=== PATIENT | female | born 1950 | race Caucasian/White ===

== ENCOUNTER 2017-02-20 01:00 | Inpatient (IN) | payer MEDICARE, MEDICAID ==
[~2017-02-20] VITALS: Ht 167.6 cm; Wt 71.7 kg
[2017-02-20] MEDS ORDERED: SODIUM CHLORIDE 0.9% 1,000 ML IV ONE (01:25)
[2017-02-20] MEDS ORDERED: INSULIN REGULAR (HUMULIN R) 300UNITS/3ML IV ONE (01:30)
[2017-02-20 01:58] LABS: BG BASE EXCESS -5.8 mmol/L (-2.0-2.0); BG CARBOXYHEMOGLOBIN 0.3 % (0.5-1.5); BG DEOXYHEMOGLOBIN 2.5 % (0.0-5.0); BG FRACTION INSPIRED OXYGEN 21; BG HCO3 ACT 16.6 mmol/L (22.0-26.0); BG METHEMOGLOBIN 0.1 % (0.0-1.5); BG OXYGEN SATURATION 97.5 % (92.0-98.5); BG OXYHEMOGLOBIN 97.1 % (94.0-97.0); BG PCO2 24.9 mmHg (35.0-45.0); BG PH 7.443 (7.350-7.450); BG PO2 105.8 mmHg (75.0-100.0); BG SAMPLE SITE RIGHT RADIAL; BG TOTAL HEMOGLOBIN 12.4 g/dL (12.0-18.0); BG VENT MODE ROOM AIR
[2017-02-20 02:11] LABS: BASOPHILS % 0.1 % (0.0-2.0); EOSINOPHILS % 0.1 % (0.0-5.0); HEMATOCRIT. 35.9 % (36.0-48.0); HEMOGLOBIN. 11.7 g/dL (12.0-16.0); LYMPHOCYTES % 14.9 % (20.0-50.0); MONOCYTES % 4.4 % (2.0-8.0); NEUTROPHILS % 80.5 % (40.0-76.0); PLATELET 251 x1000/uL (130-400); RED BLOOD CELL COUNT 4.33 mill/uL (4.2-5.4)
[2017-02-20 02:14] LABS: BETA HYDROXYBUTYRATE 0.2 mMol/L (0.0-0.3); CHLORIDE 105 mEq/L (98-107); ETHANOL BLOOD < 10 mg/dL; TROPONIN I < 0.02 ng/mL (0.00-0.04)
[2017-02-20 02:35] LABS: CARBON DIOXIDE 20 mEq/L (21-32)
[2017-02-20 02:36] LABS: CLARITY URINE CLEAR (CLEAR); COLOR URINE YELLOW (YELLOW); GLUCOSE URINE 3+ (NEGATIVE); KETONES URINE TRACE (NEGATIVE); LEUKOCYTE ESTERASE URINE NEGATIVE (NEGATIVE); NITRITE URINE NEGATIVE (NEGATIVE); OCCULT BLOOD URINE NEGATIVE (NEGATIVE); PROTEIN URINE TRACE (NEGATIVE); SPECIFIC GRAVITY URINE 1.017 (1.005-1.030); UROBILINOGEN URINE 0.2 E.U./dL (0.2-1.0)
[2017-02-20 02:54] LABS: *AMPHETAMINES SCREEN URINE NEGATIVE (NEGATIVE); *BARBITURATES SCREEN URINE NEGATIVE (NEGATIVE); *BENZODIAZEPINES SCREEN URINE NEGATIVE (NEGATIVE); *COCAINE SCREEN URINE NEGATIVE (NEGATIVE); CANNABINOID URINE SCREEN NEGATIVE (NEGATIVE); METHADONE URINE SCREEN NEGATIVE (NEGATIVE); OPIATES URINE SCREEN NEGATIVE (NEGATIVE); PHENCYCLIDINE URINE SCREEN NEGATIVE (NEGATIVE)
[2017-02-20] MEDS ORDERED: LEVOFLOXACIN 750MG PREMIX 150 ML IV SCH (03:15)
[2017-02-20] MEDS ORDERED: SODIUM CHLORIDE 0.9% 1000ML BAG (SEPSIS BOLUS) IV SCH (03:15)
[2017-02-20] MEDS ORDERED: INSULIN REGULAR (HUMULIN R) 300UNITS/3ML IV SCH (04:45)
[2017-02-20 09:00] VITALS: BP_SYST 142; BP_SYST 144; BP_DIAS 62; BP_DIAS 81
[2017-02-20] MEDS ORDERED: GUAIFENESIN 200MG/10ML SUGAR FREE UDC PO PRN (10:15)
[2017-02-20] MEDS ORDERED: DEXTROSE 50% WATER 50ML SYRINGE IV PRN (10:15)
[2017-02-20] MEDS ORDERED: DIPHENHYDRAMINE 50MG/ML VIAL IV PRN (10:15)
[2017-02-20] MEDS ORDERED: ACETAMINOPHEN 325MG TABLET PO PRN (10:15)
[2017-02-20] MEDS ORDERED: ONDANSETRON HCL 4MG/2ML VIAL IV PRN (10:15)
[2017-02-20] MEDS ORDERED: ACETAMINOPHEN 650MG SUPP PR PRN (10:15)
[2017-02-20] MEDS ORDERED: CLONIDINE 0.1MG TABLET PO PRN (10:15)
[2017-02-20] MEDS ORDERED: NA PHOS,M-B/NA PHOS,DI-BA ENEMA 118ML PR PRN (10:15)
[2017-02-20] MEDS ORDERED: HYDROCODONE/ACETAMINOPHEN 5/325MG TABLET PO PRN (10:15)
[2017-02-20] MEDS ORDERED: MAGNESIUM/ALUMINUM HYDROXIDE/SIMETHICONE 30ML UDC PO PRN (10:15)
[2017-02-20] MEDS ORDERED: DOCUSATE SODIUM 100MG CAPSULE PO PRN (10:15)
[2017-02-20 12:00] VITALS: BP 142/73
[2017-02-20] MEDS: AMLODIPINE 5MG TABLET PO SCH ×2 (12:45→20:24)
[2017-02-20] MEDS: BLOOD SUGAR DIAGNOSTIC STRIP TEST SCH ×3 (12:49→21:57)
[2017-02-20] MEDS: INSULIN LISPRO 100 UNITS/ML SUBCUT SCH ×3 (13:25→21:57)
[2017-02-20 14:42] LABS: CARBON DIOXIDE 24 mEq/L (21-32); CHLORIDE 112 mEq/L (98-107)
[2017-02-20 16:00] VITALS: BP 137/74
[2017-02-20] MEDS: SODIUM CHLORIDE 0.45% 1,000 ML IV SCH ×2 (16:58→23:00)
[2017-02-20 18:18] LABS: *AMPHETAMINES SCREEN URINE NEGATIVE (NEGATIVE); *BARBITURATES SCREEN URINE NEGATIVE (NEGATIVE); *BENZODIAZEPINES SCREEN URINE NEGATIVE (NEGATIVE); *COCAINE SCREEN URINE NEGATIVE (NEGATIVE); CANNABINOID URINE SCREEN NEGATIVE (NEGATIVE); METHADONE URINE SCREEN NEGATIVE (NEGATIVE); OPIATES URINE SCREEN NEGATIVE (NEGATIVE); PHENCYCLIDINE URINE SCREEN NEGATIVE (NEGATIVE)
[2017-02-20 20:00] VITALS: BP 139/49
[2017-02-20] MEDS ORDERED: BENA20TA3 PO (21:54)
[2017-02-20] MEDS: BENAZEPRIL 5MG TABLET PO SCH (22:00)
[2017-02-20] MEDS ORDERED: SODIUM CHLORIDE 0.45% 1,000 ML IV SCH (22:00)
[2017-02-21] VITALS: BP 109/53
[2017-02-21 04:00] VITALS: BP 128/44
[2017-02-21 06:49] LABS: BASOPHILS % 0.5 % (0.0-2.0); EOSINOPHILS % 3.2 % (0.0-5.0); HEMATOCRIT. 33.2 % (36.0-48.0); HEMOGLOBIN. 11.1 g/dL (12.0-16.0); LYMPHOCYTES % 46.9 % (20.0-50.0); MEAN CORPUSCULAR HEMOGLOBIN 27.6 pg (28.0-32.0); MEAN CORPUSCULAR VOLUME 82.9 fL (81.0-99.0); NEUTROPHILS % 44.4 % (40.0-76.0); PLATELET 234 x1000/uL (130-400); RED BLOOD CELL COUNT 4.01 mill/uL (4.2-5.4); RED CELL DISTRIBUTION WIDTH 13.3 % (11.6-14.6)
[2017-02-21 07:07] LABS: CARBON DIOXIDE 27 mEq/L (21-32); CHLORIDE 109 mEq/L (98-107); HDL CHOLESTEROL 42 mg/dL (40-59); LDL CHOLESTEROL 91 mg/dL (5-100)
[2017-02-21] MEDS: BLOOD SUGAR DIAGNOSTIC STRIP TEST SCH ×2 (07:28→12:40)
[2017-02-21 08:00] VITALS: BP 129/63
[2017-02-21] MEDS: INSULIN LISPRO 100 UNITS/ML SUBCUT SCH ×2 (08:10→12:58)
[2017-02-21] MEDS: AMLODIPINE 5MG TABLET PO SCH (08:34)
[2017-02-21] MEDS: BENAZEPRIL 5MG TABLET PO SCH (08:34)
[2017-02-21 12:00] VITALS: BP 105/54
[2017-02-21 15:32] VITALS: BP 105/54
[2017-02-21 16:00] VITALS: BP 113/59
== END 2017-02-21 16:30 | disposition home or self-care (01) | DRG 70 ==
LOC: ER 01:00 → 7WST 05:30 → ENRESERV 07:33
PROVIDERS: ADMIT Family Medicine; ATTEND Family Medicine
DX: G93.41 Metabolic encephalopathy (principal); E11.00 Type 2 diabetes mellitus with hyperosmolarity without nonketotic hyperglycemic-hyperosmolar coma (NKHHC); E87.2 Acidosis; E86.0 Dehydration; Z90.710 Acquired absence of both cervix and uterus
CPT/HCPCS: 36415; 36600; 70450; 71010; 74176; 80048; 80053; 80061; 80305; 81001; 82010; 82375; 82805; 82962; 83036; 83605; 83690; 83880; 84484; 85025; 85610; 86850; 86900; 87040; 87086; 93005; 96361; 96365; 96375; 96376; 99285; G0482; J1815; J1956; J7030

== ENCOUNTER 2017-06-24 08:59 | Inpatient (IN) | payer MEDICARE, MEDICAID ==
[~2017-06-24] VITALS: Ht 167.6 cm; Wt 62.6 kg
[~2017-06-24 08:59] MED LIST: BENA20TA10 PO
[2017-06-24 11:01] LABS: BASOPHILS % 0.4 % (0.0-2.0); EOSINOPHILS % 0.1 % (0.0-5.0); HEMATOCRIT. 42.1 % (36.0-48.0); HEMOGLOBIN. 13.9 g/dL (12.0-16.0); LYMPHOCYTES % 14.5 % (20.0-50.0); MEAN CORPUSCULAR HEMOGLOBIN 26.6 pg (28.0-32.0); MEAN CORPUSCULAR VOLUME 80.7 fL (81.0-99.0); MEAN PLATELET VOLUME 9.4 fl (7.4-10.4); MONOCYTES % 5.7 % (2.0-8.0); NEUTROPHILS % 79.3 % (40.0-76.0); PLATELET 196 x1000/uL (130-400); RED BLOOD CELL COUNT 5.22 mill/uL (4.2-5.4); RED CELL DISTRIBUTION WIDTH 13.9 % (11.6-14.6)
[2017-06-24 11:06] LABS: PARTIAL THROMBOPLASTIN TIME 26.7 sec (23.4-31.0); PROTHROMBIN TIME 10.3 sec (9.4-11.6)
[2017-06-24 11:15] LABS: CHLORIDE 98 mEq/L (98-107)
[2017-06-24] MEDS ORDERED: SODIUM CHLORIDE 0.9% 1,000 ML IV ONE (12:45)
[2017-06-24] MEDS ORDERED: DEXTROSE 50% WATER 50ML SYRINGE IV PRN (14:15)
[2017-06-24] MEDS ORDERED: DIPHENHYDRAMINE 50MG/ML VIAL IV PRN (14:15)
[2017-06-24] MEDS ORDERED: CLONIDINE 0.1MG TABLET PO PRN (14:15)
[2017-06-24] MEDS ORDERED: IPRATROPIUM/ALBUTEROL 0.5-3(2.5)MG/3ML NEB INH PRN (14:15)
[2017-06-24] MEDS ORDERED: TRAMADOL 50MG TABLET PO ONE (14:15)
[2017-06-24] MEDS ORDERED: ONDANSETRON HCL 4MG/2ML INJ IV PRN (14:15)
[2017-06-24] MEDS ORDERED: ACETAMINOPHEN 325MG TABLET PO PRN (14:15)
[2017-06-24] MEDS ORDERED: HYDROCODONE/ACETAMINOPHEN 5/325MG TABLET PO PRN (14:15)
[2017-06-24] MEDS ORDERED: THROAT LOZENGES-BENZOCAINE/MENTH/CETYLPYRD CL LOZENGES MM PRN (15:15)
[2017-06-24 18:13] VITALS: BP 133/68
[2017-06-24] MEDS: BLOOD SUGAR DIAGNOSTIC STRIP TEST SCH (20:40)
[2017-06-24] MEDS: AMOXICILLIN/POTASSIUM CLAVULANATE 875/125MG TAB PO SCH (20:48)
[2017-06-24] MEDS: GUAIFENESIN 600MG ER TABLET PO SCH (20:49)
[2017-06-24] MEDS: INSULIN LISPRO 100 UNITS/ML SUBCUT SCH (20:54)
[2017-06-24 20:56] VITALS: BP 148/64
[2017-06-24] MEDS ORDERED: ASPI-1158 PO (21:52)
[2017-06-24] MEDS ORDERED: SIMV20TA6 PO (21:52)
[2017-06-24] MEDS ORDERED: NAPR-681 PO (21:52)
[2017-06-24] MEDS ORDERED: METF-415 PO (21:52)
[2017-06-24] MEDS ORDERED: CHOL400T15 MT (21:52)
[2017-06-24] MEDS ORDERED: NAPROXEN 500MG TABLET PO PRN (22:51)
[2017-06-25] VITALS: BP 105/63
[2017-06-25 04:00] VITALS: BP 92/64
[2017-06-25 07:01] LABS: BASOPHILS % 0.2 % (0.0-2.0); HEMATOCRIT. 43.7 % (36.0-48.0); HEMOGLOBIN. 14.5 g/dL (12.0-16.0); LYMPHOCYTES % 26.1 % (20.0-50.0); MEAN CORPUSCULAR HEMOGLOBIN 27.2 pg (28.0-32.0); MEAN CORPUSCULAR VOLUME 81.8 fL (81.0-99.0); MEAN PLATELET VOLUME 9.8 fl (7.4-10.4); MONOCYTES % 7.3 % (2.0-8.0); NEUTROPHILS % 66.4 % (40.0-76.0); PLATELET 183 x1000/uL (130-400); RED BLOOD CELL COUNT 5.34 mill/uL (4.2-5.4); RED CELL DISTRIBUTION WIDTH 13.9 % (11.6-14.6)
[2017-06-25 07:23] LABS: CHLORIDE 102 mEq/L (98-107)
[2017-06-25 07:27] LABS: HDL CHOLESTEROL 19 mg/dL (40-59); LDL CHOLESTEROL 100 mg/dL (5-100)
[2017-06-25] MEDS: BLOOD SUGAR DIAGNOSTIC STRIP TEST SCH ×4 (07:40→21:29)
[2017-06-25 08:00] VITALS: BP 105/62
[2017-06-25] MEDS: GUAIFENESIN 600MG ER TABLET PO SCH ×2 (08:26→21:34)
[2017-06-25] MEDS: AMOXICILLIN/POTASSIUM CLAVULANATE 875/125MG TAB PO SCH ×2 (08:26→21:34)
[2017-06-25] MEDS: METFORMIN HCL 850MG TABLET PO SCH ×2 (08:26→17:38)
[2017-06-25] MEDS: ASPIRIN 81MG EC TABLET PO SCH (08:27)
[2017-06-25] MEDS: INSULIN LISPRO 100 UNITS/ML SUBCUT SCH ×4 (08:29→21:35)
[2017-06-25] MEDS: INSULIN GLARGINE UD 100 UNITS/ML SYR SUBCUT SCH (10:36)
[2017-06-25 11:34] LABS: CLARITY URINE CLEAR (CLEAR); KETONES URINE 3+ (NEGATIVE); LEUKOCYTE ESTERASE URINE NEGATIVE (NEGATIVE); NITRITE URINE NEGATIVE (NEGATIVE); OCCULT BLOOD URINE NEGATIVE (NEGATIVE); PROTEIN URINE 1+ (NEGATIVE); SPECIFIC GRAVITY URINE 1.041 (1.005-1.030); UROBILINOGEN URINE 0.2 E.U./dL (0.2-1.0)
[2017-06-25 12:00] VITALS: BP 107/59
[2017-06-25 12:10] LABS: COLOR URINE 3 (YELLOW)
[2017-06-25] MEDS: GUAIFENESIN-DM 200MG-20MG/10ML UDC PO PRN (15:15)
[2017-06-25 16:00] VITALS: BP 107/61
[2017-06-25 20:00] VITALS: BP 107/61
[2017-06-26] VITALS: BP 117/53
[2017-06-26 04:00] VITALS: BP 112/62
[2017-06-26] MEDS: BLOOD SUGAR DIAGNOSTIC STRIP TEST SCH ×4 (07:42→20:36)
[2017-06-26 08:00] VITALS: BP 109/63
[2017-06-26] MEDS: AMOXICILLIN/POTASSIUM CLAVULANATE 875/125MG TAB PO SCH ×2 (09:23→20:16)
[2017-06-26] MEDS: METFORMIN HCL 850MG TABLET PO SCH ×2 (09:23→17:11)
[2017-06-26] MEDS: ASPIRIN 81MG EC TABLET PO SCH (09:23)
[2017-06-26] MEDS: GUAIFENESIN 600MG ER TABLET PO SCH ×2 (09:23→20:16)
[2017-06-26] MEDS: INSULIN LISPRO 100 UNITS/ML SUBCUT SCH ×4 (09:25→21:07)
[2017-06-26 11:43] VITALS: BP 112/55
[2017-06-26] MEDS: INSULIN GLARGINE UD 100 UNITS/ML SYR SUBCUT SCH (12:00)
[2017-06-26 16:00] VITALS: BP 117/70
[2017-06-26 20:00] VITALS: BP 127/66
[2017-06-27] VITALS: BP 126/69
[2017-06-27 04:00] VITALS: BP 134/67
[2017-06-27] MEDS: BLOOD SUGAR DIAGNOSTIC STRIP TEST SCH ×4 (06:28→20:29)
[2017-06-27] MEDS: INSULIN LISPRO 100 UNITS/ML SUBCUT SCH ×4 (06:54→20:42)
[2017-06-27 08:00] VITALS: BP 112/62
[2017-06-27] MEDS: GUAIFENESIN 600MG ER TABLET PO SCH ×2 (08:45→20:39)
[2017-06-27] MEDS: AMOXICILLIN/POTASSIUM CLAVULANATE 875/125MG TAB PO SCH ×2 (08:45→20:39)
[2017-06-27] MEDS: ASPIRIN 81MG EC TABLET PO SCH (08:45)
[2017-06-27] MEDS: METFORMIN HCL 850MG TABLET PO SCH ×2 (08:45→17:27)
[2017-06-27] MEDS ORDERED: INSULIN GLARGINE UD 100 UNITS/ML SYR SUBCUT SCH ×4 (10:00→22:00)
[2017-06-27 12:00] VITALS: BP 137/66
[2017-06-27 13:04] LABS: CHLORIDE 100 mEq/L (98-107)
[2017-06-27] MEDS ORDERED: INSULIN LISPRO 100 UNITS/ML SUBCUT NR ×3 (13:15→18:00)
[2017-06-27] MEDS: ENOXAPARIN 40MG/0.4ML SYR SUBCUT SCH (13:22)
[2017-06-27 16:00] VITALS: BP 128/68
[2017-06-27] MEDS ORDERED: INSULIN LISPRO 100 UNITS/ML SUBCUT SCH ×2 (17:20)
[2017-06-27 20:00] VITALS: BP 120/64
[2017-06-27] MEDS: INSULIN GLARGINE UD 100 UNITS/ML SYR SUBCUT SCH (21:51)
[2017-06-28] VITALS: BP 114/60
[2017-06-28 04:00] VITALS: BP 128/63
[2017-06-28] MEDS: BLOOD SUGAR DIAGNOSTIC STRIP TEST SCH (06:31)
[2017-06-28] MEDS ORDERED: INSULIN LISPRO 100 UNITS/ML SUBCUT SCH (07:20)
[2017-06-28] MEDS: INSULIN LISPRO 100 UNITS/ML SUBCUT SCH (07:25)
[2017-06-28 07:29] LABS: BASOPHILS % 0.1 % (0.0-2.0); EOSINOPHILS % 0.3 % (0.0-5.0); HEMATOCRIT 37.1 % (36.0-48.0); HEMATOCRIT. 37.1 % (36.0-48.0); HEMOGLOBIN 12.4 g/dL (12.0-16.0); HEMOGLOBIN. 12.4 g/dL (12.0-16.0); LYMPHOCYTES % 26.2 % (20.0-50.0); MEAN CORPUSCULAR VOLUME 80.6 fL (81.0-99.0); MEAN PLATELET VOLUME 9.7 fl (7.4-10.4); MONOCYTES % 6.7 % (2.0-8.0); NEUTROPHILS % 66.7 % (40.0-76.0); PLATELET 215 x1000/uL (130-400); RED CELL DISTRIBUTION WIDTH 13.6 % (11.6-14.6)
[2017-06-28 07:44] LABS: CHLORIDE 106 mEq/L (98-107)
[2017-06-28] MEDS: METFORMIN HCL 850MG TABLET PO SCH (07:50)
[2017-06-28 08:10] VITALS: BP 119/56
[2017-06-28] MEDS: GUAIFENESIN 600MG ER TABLET PO SCH (10:12)
[2017-06-28] MEDS: ASPIRIN 81MG EC TABLET PO SCH (10:12)
[2017-06-28] MEDS: ENOXAPARIN 40MG/0.4ML SYR SUBCUT SCH (10:13)
[2017-06-28] MEDS: AMOXICILLIN/POTASSIUM CLAVULANATE 875/125MG TAB PO SCH (10:51)
[2017-06-28] MEDS: GUAIFENESIN-DM 200MG-20MG/10ML UDC PO PRN (10:51)
[2017-06-28] MEDS: INSULIN GLARGINE UD 100 UNITS/ML SYR SUBCUT SCH (11:44)
[2017-06-28 12:00] VITALS: BP 118/58
[2017-06-28 15:14] VITALS: BP 118/60
[2017-06-28 16:00] VITALS: BP 121/65
== END 2017-06-28 17:20 | disposition home or self-care (01) | DRG 637 ==
LOC: ER 09:16 → EDBEDREQ 12:50 → 6EST 13:19 → EDBEDREQ 13:20 → ENRESERV 17:47
PROVIDERS: ADMIT Internal Medicine; ATTEND Internal Medicine
DX: E11.65 Type 2 diabetes mellitus with hyperglycemia (principal); J96.00 Acute respiratory failure, unspecified whether with hypoxia or hypercapnia; E46 Unspecified protein-calorie malnutrition; E87.1 Hypo-osmolality and hyponatremia; E86.0 Dehydration; E78.00 Pure hypercholesterolemia, unspecified; J35.01 Chronic tonsillitis; M54.9 Dorsalgia, unspecified; J40 Bronchitis, not specified as acute or chronic; J02.0 Streptococcal pharyngitis; B95.5 Unspecified streptococcus as the cause of diseases classified elsewhere; E78.5 Hyperlipidemia, unspecified; I10 Essential (primary) hypertension; Z79.82 Long term (current) use of aspirin; Z79.84 Long term (current) use of oral hypoglycemic drugs; Z79.899 Other long term (current) drug therapy; Z85.43 Personal history of malignant neoplasm of ovary; Z87.891 Personal history of nicotine dependence; Z90.710 Acquired absence of both cervix and uterus; Z68.22 Body mass index [BMI] 22.0-22.9, adult
CPT/HCPCS: 36415; 70490; 71045; 80048; 80061; 82962; 83036; 83880; 84484; 85027; 87070; 87430; 87804; 93005; 96360; 97162; 97535; 99285; J1650; J1815; J7030

== ENCOUNTER 2024-04-24 16:08 | Emergency (ER) | payer MEDICARE, MEDICAID ==
[~2024-04-24] VITALS: Ht 170.2 cm; Wt 68.0 kg
[~2024-04-24 16:08] MED LIST changes: +ASPI-1406 PO; +BENA-8 PO; -BENA20TA10 PO; +CHOL400T15 MT; +METF-415 PO; +NAPR-681 PO; +SIMV-43 PO
[2024-04-24 16:09] VITALS: O2SAT 99
[2024-04-24 16:34] VITALS: BP 156/57; PULSE 68; RESP 16; TEMP 98.4; O2SAT 100
[2024-04-24] MEDS ORDERED: AMOX1TAB16 MT (18:20)
[2024-04-24] MEDS: LIDOCAINE HCL 1% 20ML VIAL INFIL ONE (18:51)
== END 2024-04-24 18:44 | disposition home or self-care (01) ==
LOC: ER 16:08
DX: S61.412A Laceration without foreign body of left hand, initial encounter (principal); E11.9 Type 2 diabetes mellitus without complications; E78.00 Pure hypercholesterolemia, unspecified; I10 Essential (primary) hypertension; Z95.1 Presence of aortocoronary bypass graft; W26.0XXA Contact with knife, initial encounter; Y93.89 Activity, other specified; Y92.89 Other specified places as the place of occurrence of the external cause; Y99.8 Other external cause status
CPT/HCPCS: 99283; 12002; J3490

== ENCOUNTER 2024-05-04 12:34 | Emergency (ER) | payer MEDICARE, MEDICAID ==
[~2024-05-04] VITALS: Ht 162.6 cm; Wt 59.0 kg
[~2024-05-04 12:34] MED LIST changes: +AMOX1TAB16 MT
[2024-05-04 12:40] VITALS: PULSE 75; O2SAT 100
[2024-05-04 12:44] VITALS: BP 139/52; RESP 18; TEMP 97.8; O2SAT 100
== END 2024-05-04 13:30 | disposition home or self-care (01) ==
LOC: ER 12:34
DX: Z48.02 Encounter for removal of sutures (principal); E11.9 Type 2 diabetes mellitus without complications; E78.00 Pure hypercholesterolemia, unspecified; I10 Essential (primary) hypertension; I25.2 Old myocardial infarction; Z95.1 Presence of aortocoronary bypass graft; Z79.899 Other long term (current) drug therapy
CPT/HCPCS: 99281

== ENCOUNTER 2024-05-07 14:39 | Emergency (ER) | payer OTHER, MEDICAID ==
[~2024-05-07] VITALS: Ht 170.2 cm; Wt 63.0 kg
[2024-05-07 14:41] VITALS: O2SAT 96
[2024-05-07 15:01] VITALS: BP 120/52; PULSE 80; RESP 16; TEMP 98.3; O2SAT 99
[2024-05-07] MEDS: BACITRACIN ZINC OINT UDPKT TOP ONE (19:17)
[2024-05-07] MEDS ORDERED: BO1 TP (19:21)
== END 2024-05-07 20:09 | disposition home or self-care (01) ==
LOC: ER 14:59
DX: S61.412D Laceration without foreign body of left hand, subsequent encounter (principal); E78.00 Pure hypercholesterolemia, unspecified; E11.9 Type 2 diabetes mellitus without complications; I10 Essential (primary) hypertension; Z95.1 Presence of aortocoronary bypass graft; Z79.84 Long term (current) use of oral hypoglycemic drugs; Z48.02 Encounter for removal of sutures; Z79.899 Other long term (current) drug therapy; X58.XXXD Exposure to other specified factors, subsequent encounter
CPT/HCPCS: 99282

== ENCOUNTER 2024-05-11 15:30 | Emergency (ER) | payer OTHER, MEDICAID ==
[~2024-05-11] VITALS: Ht 172.7 cm; Wt 63.5 kg
[~2024-05-11 15:30] MED LIST changes: +BO1 TP
[2024-05-11 15:39] VITALS: BP 113/58; PULSE 82; RESP 16; TEMP 98.5; O2SAT 100
== END 2024-05-11 19:55 | disposition home or self-care (01) ==
LOC: ER 15:30
DX: S61.412D Laceration without foreign body of left hand, subsequent encounter (principal); I25.2 Old myocardial infarction; I10 Essential (primary) hypertension; E78.00 Pure hypercholesterolemia, unspecified; E11.9 Type 2 diabetes mellitus without complications; Z48.02 Encounter for removal of sutures; Z79.899 Other long term (current) drug therapy; X58.XXXD Exposure to other specified factors, subsequent encounter
CPT/HCPCS: 99281